=== PATIENT | female | born 1995 | race American Indian/Alaskan Native ===

== ENCOUNTER 2020-04-06 14:53 | Emergency (ER) | payer SELFPAY | END 2020-04-06 22:30 | disposition left against medical advice (07) | LOC: ED 14:53 | DX: O26.892 Other specified pregnancy related conditions, second trimester (principal); Z53.21 Procedure and treatment not carried out due to patient leaving prior to being seen by health care provider ==

== ENCOUNTER 2020-08-30 14:37 | Outpatient (CLI) | payer OTHER, MEDICAID ==
[2020-08-30] MEDS ORDERED: LACTATED RINGERS 1,000 ML ONE (15:56)
[2020-08-30 18:08] LABS: Hematocrit 34.2 % (30.3-42.9); Hemoglobin 11.1 gm/dl (10.1-14.3); Mean Corpuscular HGB Conc 33 % (30-34); Mean Corpuscular Volume 72 fl (79-97); Platelet Count 250 K/mm3 (140-440); Red Blood Count 4.74 M/mm3 (3.65-5.03); Red Cell Distribution Width 15.3 % (13.2-15.2)
[2020-08-30 18:13] LABS: Bacteria,Urine 1+ /HPF (Negative); Bilirubin,Urine NEG (Negative); Blood,Urine NEG (Negative); Color,Urine Amber (Yellow); Mucus,Urine 2+ /HPF
[2020-08-30 18:31] LABS: Alanine Aminotransferase 38 units/L (7-56); Uric Acid 4.2 mg/dL (3.5-7.6)
[2020-08-30 19:04] VITALS: BP 130/75
[2020-08-30] MEDS ORDERED: LACTATED RINGERS 500 ML IV ONE (19:15)
[2020-08-30] MEDS ORDERED: TERBUTALINE 1 MG/1 ML INJ SUB-Q SCH (20:00)
== END 2020-08-30 19:22 | disposition home or self-care (01) ==
LOC: TRG 14:37 → APU 14:57 → TRG 19:22
PROVIDERS: ATTEND Obstetrics & Gynecology
DX: O47.03 False labor before 37 completed weeks of gestation, third trimester (principal); O13.3 Gestational [pregnancy-induced] hypertension without significant proteinuria, third trimester; Z3A.34 34 weeks gestation of pregnancy
CPT/HCPCS: 36415; 81001; 82565; 83615; 84450; 84460; 84550; 85027; J7120

== ENCOUNTER 2020-09-06 15:56 | Inpatient (IN) | payer OTHER, MEDICAID ==
[2020-09-06 18:16] LABS: Hematocrit 32.9 % (30.3-42.9); Hemoglobin 10.7 gm/dl (10.1-14.3); Mean Corpuscular HGB Conc 33 % (30-34); Mean Corpuscular Volume 71 fl (79-97); Platelet Count 250 K/mm3 (140-440); Red Blood Count 4.63 M/mm3 (3.65-5.03); Red Cell Distribution Width 14.8 % (13.2-15.2)
[2020-09-06 18:39] LABS: Alanine Aminotransferase 22 units/L (7-56); Uric Acid 3.9 mg/dL (3.5-7.6)
[2020-09-06 20:52] LABS: Bacteria,Urine 2+ /HPF (Negative); Bilirubin,Urine SM (Negative); Blood,Urine NEG (Negative); Color,Urine Amber (Yellow); Mucus,Urine 3+ /HPF
[2020-09-06 21:03] LABS: Ictotest,Urine Positive (Negative)
[2020-09-07] MEDS ORDERED: ZOLPIDEM 5 MG TAB PO PRN (00:15)
[2020-09-07] MEDS ORDERED: ACETAMINOPHEN 500 MG TAB PO PRN (00:15)
[2020-09-07] MEDS ORDERED: LACTATED RINGERS 1,000 ML IV SCH (01:00)
[2020-09-07] MEDS ORDERED: ACETAMINOPHEN 500 MG TAB ONE (01:12)
[2020-09-07] MEDS ORDERED: ZOLPIDEM 5 MG TAB ONE (01:12)
[2020-09-07 06:02] VITALS: BP 136/81
--- NOTE | 2020-09-07 06:14 | Short Stay Summary ---
Short Stay Documentation Date of service: 09/07/20 Narrative H&P: Pt is a 25 year old G2, P1 who presents to triage after having elevated blood pressures and complaint of headache at [facility]. Patient is morbidly obese and has been having intermittent elevations of blood pressure for the past few weeks. Per patient she performed 24-hour urine last week and turned into her doctor's office. It is pending full results. Patient is stating that her her headache has resolved at this point. Her blood pressures continue to be labile with some that appear to be elevated and some that appear to be within normal range. - History Principal diagnosis: IUP at 35.2 weeks, Labile gestational hypertension Past Medical History: hypertension Social history: single - Allergies and Medications Current Medications: Allergies turkey Allergy (Uncoded 01/22/14 12:21) Hives Home Medications Medication Instructions Recorded Confirmed Last Taken Type Naproxen [Naprosyn] 250 mg PO BID #14 tablet 01/22/14 Unknown Rx Promethazine [Phenergan] 25 mg PO PRN PRN #12 tablet 01/22/14 Unknown Rx Acetaminophen/Codeine [Tylenol #3] 1 tab PO Q6H PRN #20 tab 04/17/15 Unknown Rx Fluticasone [Flonase] 2 spray NS QDAY #1 bottle 04/17/15 Unknown Rx Ibuprofen [Motrin] 600 mg PO Q8H PRN #50 tablet 04/17/15 Unknown Rx Loratadine (Nf) [Claritin] 10 mg PO DAILY #30 tablet 04/17/15 Unknown Rx Sulfamethoxazole/Trimethoprim 1 each PO BID #20 tablet 04/17/15 Unknown Rx [Bactrim DS TAB] Active Medications Acetaminophen (Acetaminophen 500 Mg Tab) 1,000 mg PO Q6H PRN PRN Reason: Pain, Mild (1-3) Lactated Ringer's (Lactated Ringers) 1,000 mls @ 125 mls/hr IV DIRECT HARITHA Zolpidem Tartrate (Zolpidem 5 Mg Tab) 5 mg PO QHS PRN PRN Reason: Sleep - Physical exam General appearance: no acute distress, obese (morbidly) Lungs: Clear to auscultation, Normal air movement Heart: Regular rate, Normal S1, Normal S2 Gastrointestinal: normal, obese Female Genitourinary: deferred Extremities: no ischemia, No edema - Hospital course Hospital course: Patient was admitted overnight for monitoring and serial blood pressures. Her blood pressure pattern appeared to be consistent as it had been in the previous observation. Will discharge patient home on modified bedrest and have her follow-up in the office on next week. Patient advised to take a low-salt diet and increase her fluid intake. - Disposition Condition at discharge: Good Disposition: DC-01 TO HOME OR SELFCARE - Discharge Diagnoses (1) Gestational hypertension affecting second Status: Acute (2) Obesity complicating , third trimester Status: Acute Short Stay Discharge Plan Activity: other (Modified bedrest) Weight Bearing Status: Weight Bear as Tolerated Diet: low salt Follow up with: BRAVO TANG MD [Primary Care Provider] - 7 Days
== END 2020-09-07 06:36 | disposition home or self-care (01) | DRG 833 ==
LOC: TRG 15:56 → LD 16:08 → TRG 16:11 → LD 16:13
PROVIDERS: ADMIT Obstetrics & Gynecology; ATTEND Obstetrics & Gynecology
DX: O13.3 Gestational [pregnancy-induced] hypertension without significant proteinuria, third trimester (principal); O99.213 Obesity complicating pregnancy, third trimester; Z3A.35 35 weeks gestation of pregnancy; Z79.899 Other long term (current) drug therapy
CPT/HCPCS: 36415; 59025; 81001; 82565; 83615; 84450; 84460; 84550; 85027; 86850; 86900; 86901; G0378

== ENCOUNTER 2020-09-18 20:51 | Inpatient (IN) | payer OTHER, MEDICAID ==
[2020-09-18] MEDS ORDERED: MINERAL OIL 30 ML ORAL LIQD PO PRN (22:36)
[2020-09-18] MEDS ORDERED: TERBUTALINE 1 MG/1 ML INJ SUB-Q PRN (22:36)
[2020-09-18] MEDS ORDERED: LIDOCAINE (2%) 20 MG/1 ML VIAL 20 ML MDV INFILTRATI ONE (22:36)
[2020-09-18] MEDS ORDERED: ePHEDrine SULFATE 50 MG/1 ML INJ IV PRN (22:36)
[2020-09-18] MEDS ORDERED: OXYTOCIN DRIP 30 UNITS/500 ML BAG IV SCH ×2 (23:00)
[2020-09-18] MEDS: LACTATED RINGERS 1,000 ML IV SCH (23:25)
[2020-09-18] MEDS ORDERED: DINOPROSTONE 10 MG VAG SUPP VG ONE (23:55)
[2020-09-19 00:21] LABS: Hemoglobin 10.7 gm/dl (10.1-14.3); Mean Corpuscular HGB Conc 33 % (30-34); Mean Corpuscular Volume 71 fl (79-97); Platelet Count 271 K/mm3 (140-440); Red Blood Count 4.65 M/mm3 (3.65-5.03); Red Cell Distribution Width 14.8 % (13.2-15.2)
--- NOTE | 2020-09-19 02:59 | History and Physical Report ---
History of Present Illness Date of admission: 09/18/20 20:51 Chief complaint: induction of labor History of present illness: 25yo presents for scheduled induction of labor. She denies contractions, leakage of fluid, or vaginal bleeding. +FM. Denies MESA, RUQ pain, or changes to vision. Reports compliance with antihypertensive medications. No complaints Past History - Obstetrical History : 2 Medications and Allergies Allergies Allergy/AdvReac Type Severity Reaction Status Date / Time turkey Allergy Hives Uncoded 01/22/14 12:21 Home Medications Medication Instructions Recorded Confirmed Last Taken Type One Daily Tablet 1 tab PO DAILY 09/18/20 09/18/20 09/17/20 09:00 History labetaloL [Labetalol 100mg TAB] 1 tab PO BID 09/18/20 09/18/20 09/18/20 12:00 History Active Meds: Active Medications Ephedrine Sulfate (Ephedrine Sulfate 50 Mg/1 Ml Inj) 10 mg IV Q2M PRN PRN Reason: Hypotension Oxytocin/Sodium Chloride (Pitocin/Ns 30 Unit/500ml) 30 units in 500 mls @ 2 mls/hr IV TITR HARITHA; Protocol Lactated Ringer's (Lactated Ringers) 1,000 mls @ 125 mls/hr IV DIRECT HARITHA Last Admin: 09/18/20 23:25 Dose: 125 mls/hr Documented by: Oxytocin/Sodium Chloride (Pitocin/Ns 30 Unit/500ml) 30 units in 500 mls @ 40 mls/hr IV TITR HARITHA; Protocol Labetalol HCl (Labetalol 100 Mg Tab) 100 mg PO BID HARITHA Last Admin: 09/18/20 23:26 Dose: 100 mg Documented by: Mineral Oil (Mineral Oil 30 Ml Oral Liqd) 30 ml PO QHS PRN PRN Reason: Constipation Terbutaline Sulfate (Terbutaline 1 Mg/1 Ml Inj) 0.25 mg SUB-Q ONCE PRN PRN Reason: Hyperstimulation/Hypertonicity Review of Systems Cardiovascular: no chest pain, no syncope, no shortness of breath Respiratory: no cough, no shortness of breath Gastrointestinal: no abdominal pain, no nausea, no vomiting, no diarrhea, no constipation - Vital Signs Vital signs: Vital Signs Pulse Pulse Ox 103 H 99 09/18/20 21:40 09/18/20 21:40 Temp Pulse Resp BP Pulse Ox 79 18 158/95 100 09/19/20 02:50 09/18/20 21:44 09/19/20 02:47 09/19/20 02:50 - Physical Exam Breasts: Positive: deferred Cardiovascular: Regular rate Lungs: Positive: Clear to auscultation Abdomen: Positive: normal appearance, soft, other (obese). Negative: distention, tenderness Genitourinary (Female): Positive: normal external genitalia Uterus: Positive: other (gravid) - Obstetrical FHR: category 1 FHR comments: 140s 15x15 Uterine Contraction Monitor Mode: External Cervical Dilatation: 0 Uterine Contraction Pattern: Irregular Results Result Diagrams: 09/18/20 23:17 Abnormal lab results 09/18/20 Range/Units 23:17 MCV 71 L (79-97) fl MCH 23 L (28-32) pg All other labs normal. Assessment and Plan anticipate vaginal delivery - Patient Problems (1) Encounter for induction of labor Current Visit: Yes Status: Acute Plan to address problem: secondary to gHTN and morbid obesity -Cervidil placed [facility]: Per [facility] -labs reviewed -abnormal OGTT, normal 3OGTT-increased risk for shoulder dystocia -GBS positive - cephalic on usg 09/13 (2) Gestational hypertension affecting second Current Visit: No Status: Acute Plan to address problem: -labetalol 100 BID -continue to monitor BPs -no signs of severe features, add PIH labs/mag if indicated (3) Obesity complicating , third trimester Current Visit: No Status: Acute (4) GBS (group B Streptococcus carrier), +RV culture, currently Current Visit: Yes Status: Acute Plan to address problem: Ampicillin in active labor
[2020-09-19] MEDS: BUTORPHANOL 2 MG/1 ML INJ IV PRN (08:42)
--- NOTE | 2020-09-19 08:55 | Progress Note ---
Assessment and Plan - Patient Problems (1) Morbid obesity with BMI of 70 and over, adult Current Visit: Yes Status: Acute Plan to address problem: continue with induction (2) Chronic hypertension affecting Current Visit: Yes Status: Acute Subjective - Subjective Date of service: 09/19/20 Interval history: 25y/o @ 37+ weeks being induced for chronic hypertension and morbid obesity. Cervidil was placed last night and scheduled to be removed today around 11am. Patient having irregular contractions and pain. Denies leakage of fluid Patient reports: no new complaints Objective - Vital Signs Vital Signs: Vital Signs - 12hr 09/18/20 09/18/20 09/18/20 21:40 21:44 21:45 Temperature Pulse Rate 103 H 103 H Respiratory 18 Rate Blood Pressure Blood Pressure [Right] O2 Sat by Pulse 99 99 Oximetry 09/18/20 09/18/20 09/18/20 21:46 21:50 21:55 Temperature Pulse Rate 94 H 99 H 86 Respiratory Rate Blood Pressure 138/89 Blood Pressure [Right] O2 Sat by Pulse 99 99 Oximetry 09/18/20 09/18/20 09/18/20 22:00 22:05 22:10 Temperature Pulse Rate 102 H 98 H 95 H Respiratory Rate Blood Pressure Blood Pressure [Right] O2 Sat by Pulse 100 100 99 Oximetry 09/18/20 09/18/20 09/18/20 22:15 22:20 22:25 Temperature Pulse Rate 98 H 90 89 Respiratory Rate Blood Pressure Blood Pressure [Right] O2 Sat by Pulse 99 100 100 Oximetry 09/18/20 09/18/20 09/18/20 22:30 22:35 22:40 Temperature Pulse Rate 101 H 117 H 89 Respiratory Rate Blood Pressure Blood Pressure [Right] O2 Sat by Pulse 100 98 99 Oximetry 09/18/20 09/18/20 09/18/20 22:45 22:50 22:55 Temperature Pulse Rate 93 H 108 H 87 Respiratory Rate Blood Pressure Blood Pressure [Right] O2 Sat by Pulse 99 100 100 Oximetry 09/18/20 09/18/20 09/18/20 23:00 23:05 23:10 Temperature Pulse Rate 90 109 H 98 H Respiratory Rate Blood Pressure Blood Pressure [Right] O2 Sat by Pulse 100 100 99 Oximetry 09/18/20 09/18/20 09/18/20 23:15 23:20 23:25 Temperature Pulse Rate 103 H 96 H 92 H Respiratory Rate Blood Pressure Blood Pressure [Right] O2 Sat by Pulse 99 100 99 Oximetry 09/18/20 09/18/20 09/18/20 23:26 23:27 23:30 Temperature Pulse Rate 95 H 98 H 95 H Respiratory Rate Blood Pressure 137/99 137/99 Blood Pressure [Right] O2 Sat by Pulse 100 Oximetry 09/18/20 09/18/20 09/18/20 23:35 23:40 23:45 Temperature Pulse Rate 97 H 87 90 Respiratory Rate Blood Pressure Blood Pressure [Right] O2 Sat by Pulse 98 100 98 Oximetry 09/18/20 09/18/20 09/18/20 23:47 23:50 23:55 Temperature Pulse Rate 94 H 89 91 H Respiratory Rate Blood Pressure 139/83 Blood Pressure [Right] O2 Sat by Pulse 99 98 Oximetry 09/19/20 09/19/20 09/19/20 00:00 00:05 00:10 Temperature Pulse Rate 91 H 89 90 Respiratory Rate Blood Pressure Blood Pressure [Right] O2 Sat by Pulse 99 98 99 Oximetry 09/19/20 09/19/20 09/19/20 00:15 00:20 00:25 Temperature Pulse Rate 95 H 90 90 Respiratory Rate Blood Pressure Blood Pressure [Right] O2 Sat by Pulse 100 99 99 Oximetry 09/19/20 09/19/20 09/19/20 00:30 00:35 00:40 Temperature Pulse Rate 92 H 92 H 96 H Respiratory Rate Blood Pressure Blood Pressure [Right] O2 Sat by Pulse 98 99 99 Oximetry 09/19/20 09/19/20 09/19/20 00:45 00:47 00:50 Temperature Pulse Rate 96 H 107 H 94 H Respiratory Rate Blood Pressure 123/79 Blood Pressure [Right] O2 Sat by Pulse 99 100 Oximetry 09/19/20 09/19/20 09/19/20 00:55 01:00 01:05 Temperature Pulse Rate 102 H 98 H 104 H Respiratory Rate Blood Pressure Blood Pressure [Right] O2 Sat by Pulse 98 99 99 Oximetry 09/19/20 09/19/20 09/19/20 01:10 01:15 01:20 Temperature Pulse Rate 88 81 84 Respiratory Rate Blood Pressure Blood Pressure [Right] O2 Sat by Pulse 99 99 98 Oximetry 09/19/20 09/19/20 09/19/20 01:25 01:30 01:35 Temperature Pulse Rate 94 H 90 88 Respiratory Rate Blood Pressure Blood Pressure [Right] O2 Sat by Pulse 98 98 98 Oximetry 09/19/20 09/19/20 09/19/20 01:40 01:45 01:47 Temperature Pulse Rate 85 86 81 Respiratory Rate Blood Pressure 116/59 Blood Pressure [Right] O2 Sat by Pulse 98 97 Oximetry 09/19/20 09/19/20 09/19/20 01:50 01:55 01:58 Temperature Pulse Rate 86 85 102 H Respiratory Rate Blood Pressure Blood Pressure [Right] O2 Sat by Pulse 98 98 93 Oximetry 09/19/20 09/19/20 09/19/20 02:00 02:05 02:10 Temperature Pulse Rate 83 94 H 89 Respiratory Rate Blood Pressure Blood Pressure [Right] O2 Sat by Pulse 99 98 99 Oximetry 09/19/20 09/19/20 09/19/20 02:15 02:20 02:25 Temperature Pulse Rate 94 H 88 91 H Respiratory Rate Blood Pressure Blood Pressure [Right] O2 Sat by Pulse 99 98 98 Oximetry 09/19/20 09/19/20 09/19/20 02:30 02:35 02:40 Temperature Pulse Rate 89 90 93 H Respiratory Rate Blood Pressure Blood Pressure [Right] O2 Sat by Pulse 98 98 98 Oximetry 09/19/20 09/19/20 09/19/20 02:45 02:47 02:50 Temperature Pulse Rate 85 79 79 Respiratory Rate Blood Pressure 158/95 Blood Pressure [Right] O2 Sat by Pulse 99 100 Oximetry 09/19/20 09/19/20 09/19/20 02:55 03:00 03:02 Temperature Pulse Rate 83 88 Respiratory Rate Blood Pressure Blood Pressure [Right] O2 Sat by Pulse 99 99 94 Oximetry 09/19/20 09/19/20 09/19/20 03:05 03:13 03:14 Temperature 98.1 F Pulse Rate 96 H 93 H Respiratory Rate Blood Pressure Blood Pressure [Right] O2 Sat by Pulse 100 100 Oximetry 09/19/20 09/19/20 09/19/20 03:19 03:24 03:29 Temperature Pulse Rate 87 88 99 H Respiratory Rate Blood Pressure Blood Pressure [Right] O2 Sat by Pulse 100 100 100 Oximetry 09/19/20 09/19/20 09/19/20 03:34 03:39 03:44 Temperature Pulse Rate 95 H 92 H 88 Respiratory Rate Blood Pressure Blood Pressure [Right] O2 Sat by Pulse 100 100 100 Oximetry 09/19/20 09/19/20 09/19/20 03:48 03:49 03:54 Temperature Pulse Rate 83 87 89 Respiratory Rate Blood Pressure 131/78 Blood Pressure [Right] O2 Sat by Pulse 99 99 Oximetry 09/19/20 09/19/20 09/19/20 03:59 04:04 04:09 Temperature Pulse Rate 87 86 90 Respiratory Rate Blood Pressure Blood Pressure [Right] O2 Sat by Pulse 99 99 99 Oximetry 09/19/20 09/19/20 09/19/20 04:14 04:19 04:24 Temperature Pulse Rate 93 H 89 90 Respiratory Rate Blood Pressure Blood Pressure [Right] O2 Sat by Pulse 99 98 99 Oximetry 09/19/20 09/19/20 09/19/20 04:29 04:34 04:39 Temperature Pulse Rate 87 89 96 H Respiratory Rate Blood Pressure Blood Pressure [Right] O2 Sat by Pulse 99 97 99 Oximetry 09/19/20 09/19/20 09/19/20 04:44 04:47 04:49 Temperature Pulse Rate 94 H 90 93 H Respiratory Rate Blood Pressure 132/82 Blood Pressure [Right] O2 Sat by Pulse 99 99 Oximetry 09/19/20 09/19/20 09/19/20 04:54 04:59 05:04 Temperature Pulse Rate 85 89 86 Respiratory Rate Blood Pressure Blood Pressure [Right] O2 Sat by Pulse 99 99 99 Oximetry 09/19/20 09/19/20 09/19/20 05:09 05:14 05:19 Temperature Pulse Rate 88 86 95 H Respiratory Rate Blood Pressure Blood Pressure [Right] O2 Sat by Pulse 99 99 99 Oximetry 09/19/20 09/19/20 09/19/20 05:24 05:29 05:34 Temperature Pulse Rate 99 H 86 84 Respiratory Rate Blood Pressure Blood Pressure [Right] O2 Sat by Pulse 100 98 97 Oximetry 09/19/20 09/19/20 09/19/20 05:39 05:44 05:47 Temperature Pulse Rate 88 87 78 Respiratory Rate Blood Pressure 132/66 Blood Pressure [Right] O2 Sat by Pulse 96 96 Oximetry 09/19/20 09/19/20 09/19/20 05:49 05:54 05:59 Temperature Pulse Rate 83 86 85 Respiratory Rate Blood Pressure Blood Pressure [Right] O2 Sat by Pulse 97 97 96 Oximetry 09/19/20 09/19/20 09/19/20 06:04 06:09 06:14 Temperature Pulse Rate 84 89 86 Respiratory Rate Blood Pressure Blood Pressure [Right] O2 Sat by Pulse 97 96 97 Oximetry 09/19/20 09/19/20 09/19/20 06:19 06:24 06:29 Temperature Pulse Rate 90 85 95 H Respiratory Rate Blood Pressure Blood Pressure [Right] O2 Sat by Pulse 100 100 100 Oximetry 09/19/20 09/19/20 09/19/20 06:51 06:56 07:01 Temperature Pulse Rate 99 H 84 87 Respiratory Rate Blood Pressure Blood Pressure [Right] O2 Sat by Pulse 100 100 100 Oximetry 09/19/20 09/19/20 09/19/20 07:06 07:11 07:16 Temperature Pulse Rate 84 94 H 91 H Respiratory Rate Blood Pressure Blood Pressure [Right] O2 Sat by Pulse 100 100 100 Oximetry 09/19/20 09/19/20 09/19/20 07:21 07:26 07:31 Temperature Pulse Rate 92 H 82 83 Respiratory Rate Blood Pressure Blood Pressure [Right] O2 Sat by Pulse 100 100 100 Oximetry 09/19/20 09/19/20 09/19/20 07:36 07:41 07:46 Temperature Pulse Rate 84 84 87 Respiratory Rate Blood Pressure Blood Pressure [Right] O2 Sat by Pulse 100 100 100 Oximetry 09/19/20 09/19/20 09/19/20 07:51 07:53 07:54 Temperature 98.1 F Pulse Rate 86 86 86 Respiratory 18 Rate Blood Pressure 139/95 Blood Pressure 139/95 [Right] O2 Sat by Pulse 99 100 Oximetry 09/19/20 09/19/20 09/19/20 07:56 08:01 08:06 Temperature Pulse Rate 92 H 88 94 H Respiratory Rate Blood Pressure Blood Pressure [Right] O2 Sat by Pulse 100 100 100 Oximetry 09/19/20 09/19/20 09/19/20 08:11 08:16 08:21 Temperature Pulse Rate 90 87 87 Respiratory Rate Blood Pressure Blood Pressure [Right] O2 Sat by Pulse 99 99 100 Oximetry 09/19/20 09/19/20 09/19/20 08:26 08:31 08:36 Temperature Pulse Rate 94 H 102 H 91 H Respiratory Rate Blood Pressure Blood Pressure [Right] O2 Sat by Pulse 100 99 100 Oximetry 09/19/20 09/19/20 09/19/20 08:41 08:46 08:47 Temperature Pulse Rate 92 H 88 88 Respiratory Rate Blood Pressure Blood Pressure [Right] O2 Sat by Pulse 99 97 92 Oximetry 09/19/20 08:48 Temperature Pulse Rate 86 Respiratory Rate Blood Pressure 157/93 Blood Pressure [Right] O2 Sat by Pulse Oximetry - Labs Labs: Abnormal Labs 09/18/20 23:17 MCV 71 L MCH 23 L Laboratory Results - last 24 hr 09/18/20 09/18/20 23:17 23:17 WBC 7.9 RBC 4.65 Hgb 10.7 Hct 33.0 MCV 71 L MCH 23 L MCHC 33 RDW 14.8 Plt Count 271 Blood Type O POSITIVE Antibody Screen Negative
[2020-09-19] MEDS: LACTATED RINGERS 1,000 ML IV SCH (17:03)
[2020-09-20] MEDS: LACTATED RINGERS 1,000 ML IV SCH ×2 (01:11→17:13)
[2020-09-20] MEDS ORDERED: fentaNYL 100 MCG/2 ML INJ IV PRN (03:29)
[2020-09-20] MEDS: BUTORPHANOL 2 MG/1 ML INJ IV PRN ×2 (08:51→11:34)
--- NOTE | 2020-09-20 11:21 | Event Note ---
Date: 09/20/20 Patient undergoing induction for chronic hypertension and morbid obesity. She has been transitioned to pitocin after receiving cervidil. Cook catheter placed this am. Cervix 1.5cm/60%/-2. Remains intact. Continue to increase pitocin.
[2020-09-20] MEDS: hydrALAZINE 20 MG/1 ML INJ IV PRN ×5 (11:23→22:57)
[2020-09-20] MEDS ORDERED: NALOXONE 2 MG/2 ML INJ IV PRN (17:05)
[2020-09-20] MEDS ORDERED: ePHEDrine SULFATE 50 MG/1 ML INJ IV PRN (17:05)
--- NOTE | 2020-09-20 17:05 | Anesthesia Consultation ---
Anesthesia Consult and Med Hx Date of service: 09/20/20 - Airway Anesthetic Teeth Evaluation: Good ROM Head & Neck: Adequate Mental/Hyoid Distance: Adequate Mallampati Class: Class III Intubation Access Assessment: Possibly Difficult - Pulmonary Exam CTA: Yes - Cardiac Exam Cardiac Exam: RRR - Pre-Operative Health Status ASA Pre-Surgery Classification: ASA3 Proposed Anesthetic Plan: Epidural - Pulmonary Hx Asthma: No COPD: No Hx Pneumonia: No - Cardiovascular System Hx Hypertension: Yes Hx Pacemaker: No Hx Internal Defibrillator: No - Central Nervous System Hx Seizures: No Hx Psychiatric Problems: No - Endocrine Hx Renal Disease: No Hx End Stage Renal Disease: No Hx Hypothyroidism: No Hx Hyperthyroidism: No - Hematic Hx Anemia: Yes Hx Sickle Cell Disease: No - Other Systems Hx Alcohol Use: No Hx Obesity: Yes
--- NOTE | 2020-09-20 17:27 | Progress Note ---
Labor Epidural - Labor Epidural Start Time: 17:13 Stop Time: 17:19 Performed by:: BRITTNEY BRANNON Procedure: Patient is requesting epidural for labor pain. H&P, and labs reviewed. Procedure explained, questions answered, consent obtained. Patient in sitting position with blood pressure cuff and pulse ox on and working. Timeout performed immediately before start of procedure. Sterile chlorahexadine 0.5% prep/drape. 5 mL 1% lidocaine skin wheal at L[3]-L[4]. 18-gauge Tuohy epidural needle advanced to [id number] with saline at 10 cm. Epidural dexmedetomidine [30] mcg administered. Epidural catheter advanced to 15 cm, negative aspiration for blood and csf, negative test dose 3 ml 1.5% lidocaine with epinephrine. Sterile steri-strips and tegaderm applied, followed by tape reinforcement. Patient tolerated procedure well.
[2020-09-20] MEDS ORDERED: fentaNYL-BUPIV 2 MCG/ML-0.125% 200 MCG/100 ML BAG EPIDURAL SCH (18:00)
[2020-09-20] MEDS ORDERED: AMPICILLIN/NS 2 GM/100 ML 2 GM/100 ML BAG IV ONE (18:09)
[2020-09-20] MEDS ORDERED: CARBOPROST TROMETHAMINE 250 MCG/1 ML INJ IM ONE (20:08)
[2020-09-20] MEDS ORDERED: miSOPROStol 200 MCG TAB ONE (20:09)
[2020-09-20] MEDS ORDERED: DIPHENOXYLATE/ATROPINE TAB PO PRN (20:11)
[2020-09-20] MEDS ORDERED: CARBOPROST TROMETHAMINE 250 MCG/1 ML INJ IM PRN (20:14)
[2020-09-20] MEDS ORDERED: miSOPROStol 200 MCG TAB PR PRN (20:14)
[2020-09-20] MEDS ORDERED: OXYTOCIN 10 UNIT/1 ML INJ ONE (20:37)
[2020-09-20] MEDS ORDERED: LIDOCAINE (2%) 20 MG/1 ML VIAL 20 ML MDV INFILTRATI ONE ×2 (20:39→20:46)
[2020-09-20] MEDS ORDERED: OXYTOCIN 10 UNIT/1 ML INJ IM ONE (20:46)
--- NOTE | 2020-09-20 20:56 | Procedure Note ---
OB Delivery Note - Delivery Date of Delivery: 09/20/20 Surgeon: SHAMEKA NAYAK Estimated blood loss: 300cc - Vaginal Delivery presentation: vertex Delivery position: OA Intrapartum events: mult.variable deceleratio Delivery induction: AROM Delivery augmentation: rupture of membranes Delivery monitor: external FHT, external uterine Route of delivery: Delivery placenta: spontaneous Delivery cord: 3 umbilical vessels Episiotomy: none Delivery laceration: 2nd degree Delivery repair: vicryl Anesthesia: epidural Delivery comments: Pt delivered by nursing staff after sudden cervical change., Weight 2721 grams, 6 pounds. Apgars 8/9. Loose nuchal cord easily reduced on the perineum. Placenta delivered spontaneously and intact with 3vc. 2nd degree laceration repaired with 2.0 vicryl. Pt tolerated procedure well. Excellent hemostasis. - Infant A at 1 minute: 8 Infant Gender: Male (6 pounds)
[2020-09-20] MEDS ORDERED: AMPICILLIN/NS 1 GM/50 ML 1 GM/50 ML BAG IV SCH (22:00)
[2020-09-20] MEDS ORDERED: MAGNESIUM SULFATE 4 GM/100 ML BAG IV ONE ×2 (22:37→22:38)
[2020-09-20] MEDS ORDERED: MAGNESIUM SULFATE 40GM/1000ML 40 GM/1,000 ML BAG IV ONE (22:38)
[2020-09-20] MEDS ORDERED: MAGNESIUM SULFATE 40GM/1000ML 40 GM/1,000 ML BAG IV SCH (23:00)
[2020-09-21] MEDS ORDERED: IBUPROFEN 600 MG TAB PO PRN (02:24)
[2020-09-21] MEDS: hydrALAZINE 20 MG/1 ML INJ IV PRN (02:36)
[2020-09-21] MEDS: LACTATED RINGERS 1,000 ML IV SCH (02:38)
[2020-09-21] MEDS ORDERED: MAGNESIUM HYDROXIDE (MOM) ORAL LIQD UDC PO PRN (08:48)
[2020-09-21] MEDS ORDERED: LANOLIN/ZINC/DIMETHICONE (LANSINOH) 7 GM TP PRN (08:48)
[2020-09-21] MEDS ORDERED: WITCH HAZEL/ GLYCERIN PAD TP PRN (08:48)
[2020-09-21] MEDS ORDERED: ONDANSETRON 4 MG/2 ML INJ IV PRN (08:48)
[2020-09-21] MEDS ORDERED: diphenhydrAMINE 25 MG CAP PO PRN (08:48)
[2020-09-21] MEDS ORDERED: PROMETHAZINE 25 MG RECT SUPP PR PRN (08:48)
[2020-09-21] MEDS ORDERED: PROMETHAZINE 25 MG TAB PO PRN (08:48)
[2020-09-21] MEDS: IBUPROFEN 600 MG TAB PO SCH ×3 (08:50→22:14)
[2020-09-21] MEDS: HYDROcodone/ACETAMINOPHEN 5-325 MG TAB PO PRN ×2 (09:14→17:49)
[2020-09-21] MEDS: SENNOSIDES/DOCUSATE SODIUM 8.6/50 MG TAB PO SCH ×2 (09:14→20:40)
[2020-09-21] MEDS: DOCUSATE SODIUM 100 MG CAP PO SCH ×3 (09:30→22:14)
[2020-09-21] MEDS: PRENATAL VIT27-FE FUMARATE-FOLIC ACID VIT TAB PO SCH (09:30)
[2020-09-21 11:41] LABS: Hematocrit 31.7 % (30.3-42.9); Hemoglobin 10.1 gm/dl (10.1-14.3)
--- NOTE | 2020-09-21 12:44 | Progress Note ---
Assessment and Plan PPD 1 s/p now on mag, doing well. Blood pressures within range post delivery. Continue on mag until 24 hours post delivery then transfer to mother/baby. Subjective - Subjective Date of service: 09/21/20 Interval history: Pt began to have elevated blood pressures after delivery and decision was made to begin magnesium and to continue on labetalol bid. Patient reports: appetite normal, voiding normally, pain well controlled, ambulating normally [place]: doing well Objective - Vital Signs Latest vital signs: Vital Signs Temp Pulse Resp BP Pulse Ox 09/21/20 12:32 105 H 99 09/21/20 12:28 94 H 145/93 09/21/20 12:27 99 H 99 09/21/20 12:22 107 H 98 09/21/20 12:17 103 H 99 09/21/20 12:12 105 H 99 09/21/20 12:07 108 H 99 09/21/20 12:02 109 H 100 09/21/20 11:57 99 H 99 09/21/20 11:52 98 H 99 09/21/20 11:47 102 H 100 09/21/20 11:42 112 H 98 09/21/20 11:37 97 H 99 09/21/20 11:32 92 H 98 09/21/20 11:29 96 H 139/69 09/21/20 11:27 95 H 99 09/21/20 11:22 100 H 99 09/21/20 11:17 89 98 09/21/20 11:12 88 98 09/21/20 11:07 90 98 09/21/20 11:02 87 98 09/21/20 10:57 93 H 98 09/21/20 10:52 90 99 09/21/20 10:47 92 H 99 09/21/20 10:42 95 H 99 09/21/20 10:37 93 H 99 09/21/20 10:32 94 H 99 09/21/20 10:29 93 H 115/81 09/21/20 10:27 96 H 99 09/21/20 10:22 90 99 09/21/20 10:17 90 99 09/21/20 10:12 92 H 99 09/21/20 10:07 96 H 99 09/21/20 10:02 89 97 09/21/20 09:57 92 H 96 09/21/20 09:52 91 H 97 09/21/20 09:47 94 H 99 09/21/20 09:42 92 H 98 09/21/20 09:37 95 H 98 09/21/20 09:32 96 H 99 09/21/20 09:29 98 H 156/92 09/21/20 09:27 94 H 100 09/21/20 09:22 98 H 100 09/21/20 09:17 112 H 100 09/21/20 09:14 16 09/21/20 09:13 101 H 154/91 09/21/20 09:12 102 H 100 09/21/20 09:07 104 H 100 09/21/20 09:02 100 H 100 09/21/20 08:57 102 H 99 09/21/20 08:52 118 H 100 09/21/20 08:47 99 H 100 09/21/20 08:44 106 H 154/91 09/21/20 08:42 113 H 100 09/21/20 08:37 98 H 100 09/21/20 08:32 98 H 100 09/21/20 08:28 100 H 177/101 09/21/20 08:27 104 H 100 09/21/20 08:22 104 H 100 09/21/20 08:17 100 H 100 09/21/20 08:12 109 H 100 09/21/20 08:07 101 H 100 09/21/20 08:03 88 94 09/21/20 08:02 109 H 100 09/21/20 07:57 98 H 100 09/21/20 07:52 102 H 100 09/21/20 07:47 102 H 98 09/21/20 07:42 103 H 99 09/21/20 07:37 103 H 99 09/21/20 07:32 98 H 99 09/21/20 07:28 97 H 138/83 09/21/20 07:27 107 H 99 09/21/20 07:22 101 H 99 09/21/20 07:17 98 H 99 09/21/20 07:12 109 H 100 09/21/20 07:07 104 H 99 09/21/20 07:02 108 H 98 09/21/20 06:57 106 H 99 09/21/20 06:52 104 H 99 09/21/20 06:47 104 H 99 09/21/20 06:42 103 H 99 09/21/20 06:37 100 H 99 09/21/20 06:32 113 H 99 09/21/20 06:27 107 H 100 09/21/20 06:22 103 H 100 09/21/20 06:17 105 H 98 09/21/20 06:12 104 H 98 09/21/20 06:07 112 H 98 09/21/20 06:02 106 H 98 09/21/20 05:57 110 H 99 09/21/20 05:52 110 H 98 09/21/20 05:47 109 H 99 09/21/20 05:42 111 H 99 09/21/20 05:37 112 H 98 09/21/20 05:32 111 H 99 09/21/20 05:28 113 H 133/81 09/21/20 05:27 113 H 99 09/21/20 05:22 113 H 99 09/21/20 05:17 113 H 99 09/21/20 05:12 112 H 99 09/21/20 05:07 115 H 99 09/21/20 05:02 114 H 99 09/21/20 04:57 114 H 99 09/21/20 04:52 116 H 99 09/21/20 04:48 195 H 83 L 09/21/20 04:47 127 H 99 09/21/20 04:42 120 H 98 09/21/20 04:37 122 H 98 09/21/20 04:32 121 H 97 09/21/20 04:28 123 H 134/77 09/21/20 04:27 120 H 98 09/21/20 04:22 122 H 98 09/21/20 04:17 125 H 98 09/21/20 04:12 126 H 98 09/21/20 04:07 126 H 98 09/21/20 04:02 123 H 98 09/21/20 03:57 125 H 98 09/21/20 03:52 129 H 98 09/21/20 03:47 128 H 98 09/21/20 03:42 129 H 98 09/21/20 03:37 129 H 98 09/21/20 03:32 129 H 98 09/21/20 03:28 129 H 131/70 09/21/20 03:27 127 H 98 09/21/20 03:22 127 H 99 09/21/20 03:17 128 H 99 09/21/20 03:12 129 H 99 09/21/20 03:07 126 H 99 09/21/20 03:02 125 H 98 09/21/20 02:57 125 H 99 09/21/20 02:56 98 F 20 09/21/20 02:52 124 H 100 09/21/20 02:47 121 H 99 09/21/20 02:43 123 H 154/80 09/21/20 02:42 132 H 99 09/21/20 02:37 119 H 100 09/21/20 02:36 118 H 173/103 09/21/20 02:28 118 H 173/103 09/21/20 02:27 122 H 171/98 09/21/20 01:28 123 H 177/108 09/21/20 00:38 129 H 99 09/21/20 00:33 126 H 98 09/21/20 00:28 129 H 145/94 98 09/21/20 00:23 132 H 99 09/21/20 00:18 136 H 99 09/21/20 00:13 130 H 98 09/21/20 00:08 128 H 99 09/21/20 00:03 130 H 99 09/20/20 23:58 128 H 169/97 99 09/20/20 23:53 133 H 99 09/20/20 23:48 130 H 99 09/20/20 23:43 135 H 99 09/20/20 23:38 129 H 99 09/20/20 23:33 131 H 99 09/20/20 23:28 134 H 99 09/20/20 23:25 133 H 159/87 09/20/20 23:23 129 H 99 09/20/20 23:20 127 H 154/88 09/20/20 23:18 138 H 100 09/20/20 23:16 126 H 144/82 09/20/20 23:12 127 H 99 09/20/20 23:07 135 H 100 09/20/20 23:02 122 H 99 09/20/20 22:57 116 H 195/110 99 09/20/20 22:56 114 H 195/110 09/20/20 22:52 115 H 99 09/20/20 22:47 112 H 99 09/20/20 22:42 116 H 100 09/20/20 22:41 114 H 176/89 09/20/20 22:37 107 H 99 09/20/20 22:32 108 H 100 09/20/20 22:30 18 09/20/20 22:27 108 H 100 09/20/20 22:26 110 H 171/81 09/20/20 22:22 111 H 99 09/20/20 22:17 105 H 100 09/20/20 22:16 102 H 195/91 09/20/20 22:15 104 H 244/115 09/20/20 22:12 107 H 99 09/20/20 22:07 100 H 99 09/20/20 22:02 100 H 99 09/20/20 22:00 98 F 22 09/20/20 21:57 109 H 100 09/20/20 21:56 103 H 155/81 09/20/20 21:52 107 H 100 09/20/20 21:47 112 H 99 09/20/20 21:42 104 H 100 09/20/20 21:41 101 H 154/79 09/20/20 21:37 101 H 100 09/20/20 21:32 100 H 99 09/20/20 21:27 106 H 99 09/20/20 21:26 106 H 156/78 09/20/20 21:22 106 H 99 09/20/20 21:19 112 H 159/86 09/20/20 21:17 111 H 99 09/20/20 21:12 109 H 100 09/20/20 21:11 114 H 154/127 09/20/20 21:07 111 H 100 09/20/20 21:02 116 H 100 09/20/20 20:57 111 H 100 09/20/20 20:56 114 H 148/78 09/20/20 20:52 130 H 100 09/20/20 20:47 108 H 100 09/20/20 20:42 105 H 100 09/20/20 20:41 106 H 135/71 09/20/20 20:37 108 H 100 09/20/20 20:32 105 H 100 09/20/20 20:27 118 H 99 09/20/20 20:24 105 H 142/87 09/20/20 20:22 103 H 99 09/20/20 20:17 60 86 09/20/20 20:12 63 82 L 09/20/20 20:07 101 H 100 09/20/20 20:02 103 H 99 09/20/20 19:57 91 H 100 09/20/20 19:54 107 H 143/88 09/20/20 19:52 102 H 99 09/20/20 19:47 89 100 09/20/20 19:42 98 H 100 09/20/20 19:37 99 H 99 09/20/20 19:32 94 H 100 09/20/20 19:27 87 99 09/20/20 19:22 88 138/79 99 09/20/20 19:19 85 138/80 09/20/20 19:17 89 99 09/20/20 19:16 87 136/86 09/20/20 19:13 94 H 136/84 09/20/20 19:12 88 100 09/20/20 19:10 85 133/79 09/20/20 19:08 98.2 F 17 09/20/20 19:07 85 130/74 100 09/20/20 19:04 93 H 128/69 09/20/20 19:02 104 H 97 09/20/20 19:01 86 141/77 09/20/20 18:58 81 139/76 09/20/20 18:57 90 100 09/20/20 18:55 86 141/78 09/20/20 18:52 94 H 141/79 100 09/20/20 18:49 93 H 140/78 09/20/20 18:47 109 H 100 09/20/20 18:46 100 H 133/77 09/20/20 18:43 91 H 137/77 09/20/20 18:42 88 99 09/20/20 18:40 89 130/73 09/20/20 18:37 88 128/72 99 09/20/20 18:34 94 H 129/73 09/20/20 18:32 91 H 99 09/20/20 18:31 86 133/73 09/20/20 18:28 92 H 136/72 09/20/20 18:27 94 H 100 09/20/20 18:25 89 136/74 09/20/20 18:22 92 H 130/72 99 09/20/20 18:19 82 131/74 09/20/20 18:17 89 99 09/20/20 18:16 86 130/70 09/20/20 18:13 88 126/63 09/20/20 18:12 95 H 97 09/20/20 18:10 93 H 121/58 09/20/20 18:07 92 H 131/69 99 09/20/20 18:04 93 H 135/78 09/20/20 18:02 89 100 09/20/20 18:01 90 140/79 09/20/20 17:58 93 H 138/76 09/20/20 17:57 90 99 09/20/20 17:55 91 H 137/78 09/20/20 17:52 94 H 145/76 100 09/20/20 17:49 93 H 154/87 09/20/20 17:47 98 H 99 09/20/20 17:46 98 H 151/87 09/20/20 17:43 90 156/86 09/20/20 17:42 93 H 99 09/20/20 17:40 86 152/83 09/20/20 17:37 90 158/86 99 09/20/20 17:34 92 H 156/86 09/20/20 17:32 92 H 100 09/20/20 17:31 96 H 168/85 09/20/20 17:28 98 H 163/85 09/20/20 17:27 97 H 100 09/20/20 17:25 90 172/94 09/20/20 17:22 101 H 169/91 100 09/20/20 17:20 103 H 181/99 09/20/20 17:17 98 H 100 09/20/20 17:12 108 H 100 09/20/20 17:07 107 H 99 09/20/20 17:02 103 H 100 09/20/20 16:57 105 H 188/95 100 09/20/20 16:52 97 H 99 09/20/20 16:47 94 H 100 09/20/20 16:42 103 H 100 09/20/20 16:37 106 H 99 09/20/20 16:32 98 H 100 09/20/20 16:27 102 H 179/100 100 09/20/20 16:22 104 H 100 09/20/20 16:17 94 H 100 09/20/20 16:12 100 H 100 09/20/20 16:08 90 142/87 09/20/20 16:07 93 H 100 09/20/20 16:06 83 L 09/20/20 15:57 160 H 92 09/20/20 15:51 82 L 09/20/20 15:36 85 09/20/20 15:29 150 H 84 09/20/20 15:27 116 H 84 09/20/20 15:22 85 09/20/20 15:17 32 L 91 09/20/20 15:16 43 L 86 09/20/20 15:11 43 L 91 09/20/20 15:08 42 L 91 09/20/20 15:06 54 L 94 09/20/20 15:01 46 L 90 09/20/20 15:00 52 L 91 09/20/20 14:56 67 85 09/20/20 14:53 85 09/20/20 14:50 58 L 87 09/20/20 14:48 62 86 09/20/20 14:45 89 100 09/20/20 14:40 89 100 09/20/20 14:35 89 100 09/20/20 14:30 89 99 09/20/20 14:25 87 100 09/20/20 14:20 91 H 100 09/20/20 14:15 90 100 09/20/20 14:10 97 H 100 09/20/20 14:05 93 H 100 09/20/20 14:00 89 100 09/20/20 13:57 90 180/101 09/20/20 13:27 94 H 194/113 09/20/20 12:58 87 207/114 09/20/20 12:49 85 197/104 09/20/20 12:45 86 197/104 Intake and Output 09/20/20 09/21/20 09/21/20 22:59 06:59 14:59 Intake Total 86.433 1000 Output Total 400 2535 437 Balance -313.567 -1535 -437 Intake: IV 86.433 1000 Lactated Ringers 1,000 ml 1000 @ 125 mls/hr IV DIRECT HARITHA Rx#:[id number] PITOCin/NS 30 UNIT/500ML 76.433 30 units In 500 ml @ 2 mls/hr IV TITR HARITHA Rx#: [id number] Right Upper arm 10 Output: Urine 400 2535 437 Indwelling Catheter 400 2535 437 Other: Total, Output Amount 400 437 437 Estimated Blood Loss 300 - Exam Breasts: Present: deferred Cardiovascular: Present: Regular rate, Normal S1, Normal S2 Lungs: Present: Clear to auscultation, Normal air movement Abdomen: Present: normal appearance, soft, normal bowel sounds Uterus: Present: normal, firm Extremities: Present: normal - Labs Labs: Abnormal lab results 09/21/20 09/21/20 Range/Units 06:23 11:23 Magnesium 3.70 H 4.00 H (1.7-2.3) mg/dL
[2020-09-21] MEDS ORDERED: LACTATED RINGERS 1,000 ML IV SCH (15:00)
[2020-09-21] MEDS ORDERED: LACTATED RINGERS 1,000 ML ONE (15:09)
--- NOTE | 2020-09-21 15:25 | Post Anesthesia Evaluation ---
- Post Anesthesia Evaluation Patient Participated: Yes Airway Patent: Yes Stable Respiratory Function: Yes Nausea/Vomiting: No Temp > 96.8F: Yes Pain Manageable: Yes Adequeate Hydration: Yes Anesthesia Complications: No Block Receding Appropriately: Yes
[2020-09-22] MEDS: IBUPROFEN 600 MG TAB PO SCH ×2 (05:24→09:00)
[2020-09-22] MEDS: DOCUSATE SODIUM 100 MG CAP PO SCH (10:18)
[2020-09-22] MEDS: SENNOSIDES/DOCUSATE SODIUM 8.6/50 MG TAB PO SCH (10:18)
[2020-09-22] MEDS: PRENATAL VIT27-FE FUMARATE-FOLIC ACID VIT TAB PO SCH (10:18)
--- NOTE | 2020-09-22 12:20 | Progress Note ---
Assessment and Plan PPD 2 s/p with morbid obesity and chronic hypertension. Subjective - Subjective Date of service: 09/22/20 Interval history: Pt downstairs in NICU with baby. Not in room : in NICU Objective - Vital Signs Latest vital signs: Vital Signs Temp Pulse Resp BP BP Pulse Ox 09/22/20 08:10 98.0 F 82 18 145/92 98 09/22/20 04:12 98.2 F 91 H 18 151/96 99 09/21/20 23:40 98.1 F 95 H 18 130/81 100 09/21/20 23:00 98.2 F 09/21/20 22:14 16 09/21/20 21:54 108 H 135/84 09/21/20 21:52 96 H 135/84 09/21/20 21:49 100 H 100 09/21/20 21:44 110 H 100 09/21/20 21:39 101 H 100 09/21/20 21:34 99 H 98 09/21/20 21:29 114 H 96 09/21/20 21:28 96 H 173/100 09/21/20 21:24 99 H 97 09/21/20 21:19 101 H 98 09/21/20 21:15 98.1 F 16 09/21/20 21:14 95 H 99 09/21/20 21:09 105 H 98 09/21/20 21:04 107 H 98 09/21/20 20:59 101 H 98 09/21/20 20:54 107 H 99 09/21/20 20:49 96 H 98 09/21/20 20:44 99 H 98 09/21/20 20:39 99 H 98 09/21/20 20:34 100 H 98 09/21/20 20:29 100 H 98 09/21/20 20:28 99 H 135/83 09/21/20 20:24 111 H 99 09/21/20 20:19 63 83 L 09/21/20 20:15 87 09/21/20 20:12 106 H 82 L 09/21/20 20:10 79 L 09/21/20 20:05 76 78 L 09/21/20 20:00 73 L 09/21/20 19:54 122 H 81 L 09/21/20 19:49 97 H 98 09/21/20 19:44 98 H 100 09/21/20 19:39 114 H 100 09/21/20 19:34 113 H 98 09/21/20 19:29 103 H 98 09/21/20 19:28 105 H 138/83 09/21/20 19:24 107 H 98 09/21/20 19:19 112 H 99 09/21/20 19:14 104 H 99 09/21/20 19:09 100 H 97 09/21/20 19:04 112 H 98 09/21/20 19:00 98.4 F 18 09/21/20 18:59 103 H 96 09/21/20 18:54 104 H 97 09/21/20 18:49 103 H 97 09/21/20 18:44 103 H 98 09/21/20 18:39 104 H 97 09/21/20 18:34 107 H 97 09/21/20 18:29 105 H 98 09/21/20 18:28 100 H 145/86 09/21/20 18:24 102 H 99 09/21/20 18:19 101 H 99 09/21/20 18:14 101 H 98 09/21/20 18:09 99 H 99 09/21/20 18:04 97 H 99 09/21/20 17:59 99 H 99 09/21/20 17:55 98.1 F 18 09/21/20 17:54 96 H 99 09/21/20 17:49 98 H 99 09/21/20 17:44 97 H 99 09/21/20 17:39 95 H 100 09/21/20 17:34 105 H 99 09/21/20 17:29 115 H 100 09/21/20 17:28 110 H 131/81 09/21/20 17:24 107 H 99 09/21/20 17:19 101 H 97 09/21/20 17:17 119 H 0 L 09/21/20 17:14 94 H 69 L 09/21/20 17:09 71 0 L 09/21/20 17:06 6 L 09/21/20 17:01 93 09/21/20 16:59 61 95 09/21/20 16:55 132 H 90 09/21/20 16:54 75 96 09/21/20 16:44 70 81 L 09/21/20 16:39 68 90 09/21/20 16:38 73 82 L 09/21/20 16:33 63 87 09/21/20 16:28 105 H 121/72 81 L 09/21/20 16:23 194 H 81 L 09/21/20 16:22 83 L 09/21/20 16:17 103 H 99 09/21/20 16:12 103 H 100 09/21/20 16:07 105 H 100 09/21/20 16:02 99 H 100 09/21/20 15:57 96 H 100 09/21/20 15:52 103 H 100 09/21/20 15:47 99 H 100 09/21/20 15:42 104 H 100 09/21/20 15:37 104 H 99 09/21/20 15:32 99 H 100 09/21/20 15:29 114 H 129/78 09/21/20 15:27 106 H 100 09/21/20 15:22 95 H 99 09/21/20 15:17 96 H 99 09/21/20 15:12 101 H 99 09/21/20 15:07 100 H 99 09/21/20 15:02 94 H 99 09/21/20 14:57 93 H 97 09/21/20 14:52 95 H 98 09/21/20 14:47 96 H 97 09/21/20 14:42 96 H 98 09/21/20 14:37 96 H 97 09/21/20 14:32 95 H 98 09/21/20 14:28 91 H 140/85 09/21/20 14:27 94 H 97 09/21/20 14:22 97 H 97 09/21/20 14:17 94 H 97 09/21/20 14:12 92 H 99 09/21/20 14:07 97 H 97 09/21/20 14:02 95 H 97 09/21/20 13:57 100 H 96 09/21/20 13:52 98 H 97 09/21/20 13:47 99 H 98 09/21/20 13:42 99 H 97 09/21/20 13:37 101 H 98 09/21/20 13:32 100 H 97 09/21/20 13:28 100 H 136/82 09/21/20 13:27 100 H 97 09/21/20 13:22 97 H 97 09/21/20 13:17 103 H 99 09/21/20 13:12 101 H 98 09/21/20 13:07 99 H 98 09/21/20 13:02 95 H 98 09/21/20 12:57 93 H 99 09/21/20 12:52 100 H 100 09/21/20 12:47 102 H 100 09/21/20 12:42 99 H 100 09/21/20 12:37 100 H 99 09/21/20 12:32 105 H 99 09/21/20 12:28 94 H 145/93 09/21/20 12:27 99 H 99 09/21/20 12:22 107 H 98 Intake and Output 09/21/20 09/22/20 09/22/20 22:59 06:59 14:59 Intake Total 2980 300 Output Total 900 900 1 Balance 2080 -600 -1 Intake: Oral 2980 200 Intake, Free Water 100 Output: Urine 900 900 Indwelling Catheter 900 Void 900 Stool 1 Other: Total, Intake Amount 480 200 Total, Output Amount 250 400 1 # Voids Void 1 - Labs Labs: Abnormal lab results 09/21/20 Range/Units 17:56 Magnesium 4.00 H (1.7-2.3) mg/dL
--- NOTE | 2020-09-22 12:22 | Discharge Summary ---
Providers - Providers Date of Admission: 09/18/20 20:51 Date of discharge: 09/22/20 Attending physician: ARMANI WEBER MD Primary care physician: ARMANI WEBER MD Hospitalization Reason for admission: induction of labor Delivery: Episiotomy: none Laceration: 2nd degree Other procedures: none complications: none Discharge diagnosis: IUP at term delivered baby: male Condition at discharge: Stable Disposition: DC-01 TO HOME OR SELFCARE Plan - Discharge Medications Prescriptions: labetaloL [Labetalol 100mg TAB] 100 mg PO BID #60 tablet Ibuprofen [Motrin 600 MG tab] 600 mg PO Q6H #30 tablet - Provider Discharge Summary Activity: routine, no sex for 6 weeks, no heavy lifting 4 weeks, no strenuous exercise Diet: routine Instructions: routine Additional instructions: [] Smoking cessation referral if applicable(refer to patient education folder for contact #) [] Refer to [facility] Book[facility] Call your doctor immediately for: * Fever > 100.5 * Heavy vaginal bleeding ( >1 pad per hour) * Severe persistent headache * Shortness of breath * Reddened, hot, painful area to leg or breast * Drainage or odor from incision. * Keep incision clean and dry at all times and follow doctor's instructions regarding bathing/showering - Follow up plan Follow up: ARMANI WEBER MD [Primary Care Provider] - 10 Days
[2020-09-22] MEDS: HYDROcodone/ACETAMINOPHEN 5-325 MG TAB PO PRN (14:24)
[2020-09-23] MEDS: IBUPROFEN 600 MG TAB PO SCH (01:16)
[2020-09-23] MEDS: DOCUSATE SODIUM 100 MG CAP PO SCH ×2 (01:17→12:36)
[2020-09-23] MEDS ORDERED: IBUPROFEN 600 MG TAB PO SCH (07:53)
--- NOTE | 2020-09-23 07:55 | Event Note ---
Date: 09/23/20 Pt feeling well this morning. Her son is still in the NICU due to jaundice. Her blood pressures are borderline, but she is only on 100 mg of labetalol BID. Plan to increase labetalol to 200 mg BID and RTC for BP check within one week. Proceed with discharge.
[2020-09-23] MEDS ORDERED: IBUPROFEN 800 MG TAB PO SCH (09:00)
[2020-09-23] MEDS: PRENATAL VIT27-FE FUMARATE-FOLIC ACID VIT TAB PO SCH (12:37)
[2020-09-23 16:10] VITALS: BP 143/87
== END 2020-09-23 16:30 | disposition home or self-care (01) | DRG 807 ==
LOC: LD 20:51 → OB 09-21 23:59
PROVIDERS: ADMIT Obstetrics & Gynecology; ATTEND Obstetrics & Gynecology
PROC: 3E0R3BZ Introduction of Anesthetic Agent into Spinal Canal, Percutaneous Approach (ICD-10-PCS; principal; 2020-09-20)
PROC: 10E0XZZ Delivery of Products of Conception, External Approach (ICD-10-PCS; 2020-09-20)
PROC: 0KQM0ZZ Repair Perineum Muscle, Open Approach (ICD-10-PCS; 2020-09-20)
PROC: 00HU33Z Insertion of Infusion Device into Spinal Canal, Percutaneous Approach (ICD-10-PCS; 2020-09-20)
PROC: 10907ZC Drainage of Amniotic Fluid, Therapeutic from Products of Conception, Via Natural or Artificial Opening (ICD-10-PCS; 2020-09-20)
DX: O99.214 Obesity complicating childbirth (principal); Z37.0 Single live birth; O13.4 Gestational [pregnancy-induced] hypertension without significant proteinuria, complicating childbirth; O99.824 Streptococcus B carrier state complicating childbirth; Z3A.37 37 weeks gestation of pregnancy; Z20.822 Contact with and (suspected) exposure to COVID-19; E66.01 Morbid (severe) obesity due to excess calories; O70.1 Second degree perineal laceration during delivery
CPT/HCPCS: 36415; 59200; 83735; 85014; 85018; 85027; 86850; 86900; 86901; G0378; J0290; J0360; J0595; J2590; J3010; J3475; J7120; U0003

== ENCOUNTER 2020-09-27 10:18 | Observation (INO) | payer OTHER, MEDICAID ==
--- NOTE | 2020-09-27 10:35 | Event Note ---
ED Screening Note ED Screening Note: Patient had a vaginal delivery a week ago She was diagnosed with preeclampsia She states that she stayed in the hospital and was given magnesium She states 5 days ago that her legs began to swell sHe states yesterday she began having shortness of breath and chest tightness She states that she was still having issues with hypertension She states yesterday she went to her [employer] and they increased her labetalol from 200-400 She states that she took 400 mg last night and 400 mg this morning Hypotensive Rales on exam This initial assessment/diagnostic orders/clinical plan/treatment(s) is/are subject to change based on patients health status, clinical progression and re- assessment by fellow clinical providers in the ED. Further treatment and workup at subsequent clinical providers discretion. Patient/guardian urged not to elope from the ED as their condition may be serious if not clinically assessed and managed. Initial orders include: Chest x-ray labs, EKG Charge nurse Mare notified patient needs room AL
--- NOTE | 2020-09-27 10:51 | Emergency Department Report ---
ED Chest Pain HPI - General Chief Complaint: Chest Pain Stated Complaint: CHEST PAIN/LUPILLO FEET SWOLLEN Time Seen by Provider: 09/27/20 10:33 Source: patient Mode of arrival: Wheelchair Limitations: No Limitations - History of Present Illness Initial Comments: This is a 25-year-old -[place] female who presents to the emergency department with a complaint of a midsternal chest discomfort described as a pulling sensation, shortness of breath that worsens with exertion, continued if not worsening lower extremity swelling/edema, and some low blood pressure. The patient gave here at [facility] 1 week ago by vaginal delivery done by Dr. Nithya Stark. Patient follows with [facility]. Just after the patient delivered, she started to develop some hypertension. She was given a magnesium infusion and started on labetalol. The patient was discharged last Wednesday, 5 days ago. That day the patient had started to develop some lower extremity swelling and was told that she may have developed some preeclampsia. The labetalol was increased to 200 mg twice daily. Over the next few days the patient continued to have lower extremity edema. She contacted the [facility] [facility] [employer] [facility] service and the labetalol was increased to 400 mg twice daily yesterday. She took 1 dose of this last night and another this morning. This morning the patient says that she started to develop the midsternal chest "pulling" discomfort and shortness of breath. The patient came through our triage and had a blood pressure with a systolic in the 70s." Prior to this recent hypertension and preeclampsia, the patient denies any other past medical history. She denies any tobacco or illicit drug use. - Related Data Home Medications Medication Instructions Recorded Confirmed Last Taken One Daily Tablet 1 tab PO DAILY 09/18/20 09/27/20 09/17/20 09:00 labetaloL [Labetalol 200mg TAB] 400 mg PO BID 09/27/20 09/27/20 Unknown Previous Rx's Medication Instructions Recorded Last Taken Type Ibuprofen [Motrin 800 MG tab] 800 mg PO Q8HR PRN #30 tablet 09/23/20 Unknown Rx Allergies Allergy/AdvReac Type Severity Reaction Status Date / Time Latex, Natural Rubber Allergy Rash Verified 09/21/20 08:57 turkey Allergy Hives Uncoded 01/22/14 12:21 Heart Score - HEART Score History: Slightly suspicious EKG: Normal Age: < 45 Risk factors: 1-2 risk factors Troponin: < normal limit HEART Score: 1 - EKG Read Time Time EKG Completed: 10:35 EKG Read Time: 10:37 ED Review of Systems ROS: Stated complaint: CHEST PAIN/LUPILLO FEET SWOLLEN Other details as noted in HPI Comment: All other systems reviewed and negative Constitutional: denies: chills, fever Eyes: denies: eye pain, vision change ENT: denies: ear pain, throat pain Respiratory: shortness of breath, SOB with exertion, wheezing Cardiovascular: chest pain, edema Gastrointestinal: denies: abdominal pain, vomiting Genitourinary: denies: dysuria, discharge Musculoskeletal: myalgia. denies: back pain Skin: denies: rash, lesions Neurological: denies: headache, numbness, paresthesias ED Past Medical Hx - Past Medical History Previous Medical History?: Yes Hx Hypertension: Yes Hx Congestive Heart Failure: No Hx Diabetes: No Hx Deep Vein Thrombosis: No Hx Renal Disease: No Hx Sickle Cell Disease: No Hx Headaches / Migraines: Yes Hx Seizures: No Hx Asthma: No Hx COPD: No Hx HIV: No - Surgical History Past Surgical History?: No Hx Pacemaker: No Hx Internal Defibrillator: No - Social History Smoking Status: Never Smoker - Medications Home Medications: Home Medications Medication Instructions Recorded Confirmed Last Taken Type One Daily Tablet 1 tab PO DAILY 09/18/20 09/27/20 09/17/20 09:00 History Ibuprofen [Motrin 800 MG tab] 800 mg PO Q8HR PRN #30 tablet 09/23/20 09/27/20 Unknown Rx labetaloL [Labetalol 200mg TAB] 400 mg PO BID 09/27/20 09/27/20 Unknown History ED Physical Exam - General Limitations: No Limitations - Other Other exam information: GENERAL: The patient is well-developed well-nourished. HENT: Normocephalic. Atraumatic. Patient has moist mucous membranes. EYES: Extraocular motions are intact. Pupils equal reactive to light bilaterally. NECK: Supple. Trachea is midline. CHEST/LUNGS: Slightly coarse breath sounds. There is some tachypnea but no accessory muscle use. HEART/CARDIOVASCULAR: Regular. There is no tachycardia. There is no murmur. ABDOMEN: Abdomen is soft, nontender. Patient has normal bowel sounds. Morbidly obese habitus. SKIN: Moderate nonpitting swelling to the bilateral lower extremities from the knees distally. NEURO: The patient is awake, alert, and oriented. The patient is cooperative. The patient has no focal neurologic deficits. Normal speech. Cranial nerves II through XII grossly intact. No facial asymmetry. MUSCULOSKELETAL: There is no tenderness or deformity. There is no limitation range of motion. ED Course Vital Signs 09/27/20 09/27/20 09/27/20 10:22 11:14 11:15 Temperature 97.9 F Pulse Rate 75 76 79 Respiratory 20 31 H 27 H Rate Blood Pressure 197/112 Blood Pressure 84/57 [Right] O2 Sat by Pulse 98 99 100 Oximetry 09/27/20 09/27/20 09/27/20 11:30 11:46 12:00 Temperature Pulse Rate 69 Respiratory 25 H Rate Blood Pressure 178/105 182/112 197/110 Blood Pressure [Right] O2 Sat by Pulse 98 98 96 Oximetry 09/27/20 09/27/20 09/27/20 12:15 12:36 12:46 Temperature Pulse Rate Respiratory Rate Blood Pressure 168/100 168/100 170/100 Blood Pressure [Right] O2 Sat by Pulse 95 100 Oximetry 09/27/20 09/27/20 09/27/20 13:00 13:07 13:16 Temperature Pulse Rate Respiratory Rate Blood Pressure 170/100 167/93 154/97 Blood Pressure [Right] O2 Sat by Pulse 100 100 Oximetry 09/27/20 09/27/20 09/27/20 13:32 13:46 14:00 Temperature Pulse Rate Respiratory Rate Blood Pressure 168/100 168/100 Blood Pressure [Right] O2 Sat by Pulse 93 99 99 Oximetry 09/27/20 09/27/20 09/27/20 14:16 14:30 15:53 Temperature Pulse Rate Respiratory Rate Blood Pressure 179/108 154/101 177/106 Blood Pressure [Right] O2 Sat by Pulse 97 99 Oximetry 09/27/20 09/27/20 09/27/20 16:00 16:16 16:30 Temperature Pulse Rate Respiratory Rate Blood Pressure 170/108 165/93 178/97 Blood Pressure [Right] O2 Sat by Pulse 100 99 98 Oximetry 09/27/20 09/27/20 16:46 17:00 Temperature Pulse Rate Respiratory Rate Blood Pressure 169/96 171/100 Blood Pressure [Right] O2 Sat by Pulse 98 99 Oximetry ELDER score - Elder Score Age > 65: (0) No Aspirin use within the Past 7 Days: (0) No 3 or more CAD Risk Factors: (0) No 2 or more Angina events in past 24 hrs: (1) Yes Known CAD with more than 50% Stenosis: (0) No Elevated Cardiac Markers: (0) No ST Deviation Greater than 0.5mm: (0) No ELDER Score: 1 ED Medical Decision Making - Lab Data Result diagrams: 09/27/20 11:16 09/27/20 11:01 Lab Results 09/27/20 09/27/20 09/27/20 Range/Units 11:01 11:16 12:05 WBC 8.3 (4.5-11.0) K/mm3 RBC 4.88 (3.65-5.03) M/mm3 Hgb 11.3 (10.1-14.3) gm/dl Hct 35.3 (30.3-42.9) % MCV 72 L (79-97) fl MCH 23 L (28-32) pg MCHC 32 (30-34) % RDW 15.1 (13.2-15.2) % Plt Count 327 (140-440) K/mm3 Lymph % (Auto) 15.7 (13.4-35.0) % Z[place]ala % (Auto) 5.6 (0.0-7.3) % Eos % (Auto) 0.5 (0.0-4.3) % Baso % (Auto) 0.4 (0.0-1.8) % Lymph # (Auto) 1.3 (1.2-5.4) K/mm3 Zavala # (Auto) 0.5 (0.0-0.8) K/mm3 Eos # (Auto) 0.0 (0.0-0.4) K/mm3 Baso # (Auto) 0.0 (0.0-0.1) K/mm3 Seg Neutrophils % 77.8 H (40.0-70.0) % Seg Neutrophils # 6.4 (1.8-7.7) K/mm3 D-Dimer 813.90 H (0-234) ng/mlDDU Sodium 137 (137-145) mmol/L Potassium 4.0 (3.6-5.0) mmol/L Chloride 104.2 (98-107) mmol/L Carbon Dioxide 19 L (22-30) mmol/L Anion Gap 18 mmol/L BUN 9 (7-17) mg/dL Creatinine 0.7 (0.6-1.2) mg/dL Estimated GFR > 60 ml/min BUN/Creatinine Ratio 13 % Glucose 77 (65-100) mg/dL Calcium 8.7 (8.4-10.2) mg/dL Total Bilirubin 0.40 (0.1-1.2) mg/dL AST 18 (5-40) units/L ALT 31 (7-56) units/L Alkaline Phosphatase 214 H (35-129) units/L Troponin T < 0.010 (0.00-0.029) ng/mL NT-Pro-B Natriuret Pep 598.8 H (0-450) pg/mL Total Protein 7.6 (6.3-8.2) g/dL Albumin 3.8 L (3.9-5) g/dL Albumin/Globulin Ratio 1.0 % /16/ Range/Units 14:22 WBC (4.5-11.0) K/mm3 RBC (3.65-5.03) M/mm3 Hgb (10.1-14.3) gm/dl Hct (30.3-42.9) % MCV (79-97) fl MCH (28-32) pg MCHC (30-34) % RDW (13.2-15.2) % Plt Count (140-440) K/mm3 Lymph % (Auto) (13.4-35.0) % Zavala % (Auto) (0.0-7.3) % Eos % (Auto) (0.0-4.3) % Baso % (Auto) (0.0-1.8) % Lymph # (Auto) (1.2-5.4) K/mm3 Zavala # (Auto) (0.0-0.8) K/mm3 Eos # (Auto) (0.0-0.4) K/mm3 Baso # (Auto) (0.0-0.1) K/mm3 Seg Neutrophils % (40.0-70.0) % Seg Neutrophils # (1.8-7.7) K/mm3 D-Dimer (0-234) ng/mlDDU Sodium (137-145) mmol/L Potassium (3.6-5.0) mmol/L Chloride (98-107) mmol/L Carbon Dioxide (22-30) mmol/L Anion Gap mmol/L BUN (7-17) mg/dL Creatinine (0.6-1.2) mg/dL Estimated GFR ml/min BUN/Creatinine Ratio % Glucose (65-100) mg/dL Calcium (8.4-10.2) mg/dL Total Bilirubin (0.1-1.2) mg/dL AST (5-40) units/L ALT (7-56) units/L Alkaline Phosphatase (35-129) units/L Troponin T < 0.010 (0.00-0.029) ng/mL NT-Pro-B Natriuret Pep (0-450) pg/mL Total Protein (6.3-8.2) g/dL Albumin (3.9-5) g/dL Albumin/Globulin Ratio % - EKG Data -: EKG Interpreted by Me EKG shows normal: sinus rhythm, axis, intervals, QRS complexes, ST-T waves Rate: normal - EKG Data When compared to previous EKG there are: previous EKG unavailable Interpretation: normal EKG - Radiology Data Radiology results: report reviewed, image reviewed interpreted by me: Chest x-ray does not show any acute process. There are no pleural effusions, obvious pneumonia and there is no pneumothorax. No significant cardiomegaly. The CT head/brain wo con INDICATION / CLINICAL INFORMATION: 25 years Female; Headache with hypertensive urgency. TECHNIQUE: Routine CT head without contrast. All CT scans at this location are performed using CT dose reduction for ALARA by means of automated exposure control. COMPARISON: None. FINDINGS: BRAIN / INT RACRANIAL CONTENTS: The brain demonstrates appropriate attenuation. The ventricular system is within normal limits in size and configuration. There is no clear CT ends of acute intracranial hemorrhage or significant mass effect. ORBITS: No significant abnormality of visualized orbits. SINUSES / MASTOIDS: There is minimal mucosal thickening within the left maxillary sinus. CRANIOCERVICAL JUNCTION: No significant abnormality. ADDITIONAL FINDINGS: None. IMPRESSION: 1. There is no CT evidence of acute intracranial process. CTA CHEST WITH CONTRAST INDICATION : Elevated d-dimer, shortness of breath. TECHNIQUE: Axial imaging performed through the chest, with contrast bolus timing set to maximize opacification of the pulmonary arteries. Sagittal and coronal reformatted images. 3-plane MIP reformatted images were obtained. All CT scans at this location are performed using CT dose reduction for ALARA by means of automated exposure control. 100 mL of intravenous contrast administered. COMPARISON: None FINDINGS: Bolus: Contrast bolus timing is adequate. PTE: Sli ghtly limited exam secondary to patient body habitus. No pulmonary embolus is detected. Mediastinum: Heart size is borderline. No pericardial abnormality. The remaining mediastinal structures are unremarkable. No pathologic mediastinal adenopathy. Lungs: Lungs are clear. Bones: Degenerative changes in the spine with nothing acute. Upper abdomen: Limited imaging of the upper abdomen shows nothing acute. IMPRESSION: Borderline heart size. Lungs clear. No pulmonary embolus is detected. - Medical Decision Making This patient presents to the emergency department with some continued issues with blood pressure control, some midsternal chest discomfort, bilateral lower extremity swelling, and the patient complains of a frontal headache during her ED course. On examination she does not have any focal, motor or sensory deficits and her cranial nerves are intact. Heart and lung sounds are normal to auscultation. The patient does present with a blood pressure of about 200/100 despite taking 400 mg of labetalol last night and again this morning. It sounds like she has some recent history of preeclampsia just after her vaginal delivery for which she was initially started on the labetalol and given a magnesium infusion prior to discharge. The labetalol has increased from 100 to 200 mg, then to 400 mg twice daily. Chest x-ray did not show any pneumonia, pleural effusions, pneumothorax, or any other acute process. EKG did not have any morphology consistent ST elevation myocardial infarction or any dysrhythmia. The patient's labs were mostly unremarkable except for a UTI, a slightly elevated proBNP, and an elevated D-dimer. Patient had a CT scan of the head that did not show any hemorrhage, large vessel occlusion, or any other acute process. The patient was given a total of 20 mg of hydralazine. Despite the hydralazine, and the labetalol that she had taken this morning, the patient still has a blood pressure of 170/100 at the time of admission. Because of this, the lower extremity swelling, and the intermittent chest discomfort/shortness of breath, the patient appears to still have issues with eclampsia. I spoke to Dr. Coates, the [employer] [facility] on-call for [facility] [employer] [facility] [employer], who agrees that the patient will need admission. She has allowed for me to place bridging orders over to labor and delivery where the patient will most likely receive a magnesium infusion. Critical Care Time: No Critical care attestation.: If time is entered above; I have spent that time in minutes in the direct care of this critically ill patient, excluding procedure time. ED Disposition Clinical Impression: Preeclampsia in period, Hypertensive urgency, Bilateral lower extremity edema Dyspnea Qualifiers: Dyspnea type: shortness of breath Qualified Code(s): R06.02 - Shortness of breath; R06.00 - Dyspnea, unspecified; R06.01 - Orthopnea Disposition: 09 OP ADMIT IP TO THIS HOSP Is pt being admited?: Yes Condition: Serious Time of Disposition: 16:03
[2020-09-27 11:49] LABS: Bacteria,Urine 1+ /HPF (Negative); Bilirubin,Urine NEG (Negative); Blood,Urine LG (Negative); Color,Urine Yellow (Yellow); Urobilinogen,Urine < 2.0 mg/dL (<2.0)
[2020-09-27 11:52] LABS: Alanine Aminotransferase 31 units/L (7-56); Albumin 3.8 g/dL (3.9-5); Blood Urea Nitrogen 9 mg/dL (7-17); Calcium 8.7 mg/dL (8.4-10.2); Hemolysis Index 10
[2020-09-27 11:52] LABS: Basophils % (Auto) 0.4 % (0.0-1.8); Eosinophils % (Auto) 0.5 % (0.0-4.3); Hematocrit 35.3 % (30.3-42.9); Hemoglobin 11.3 gm/dl (10.1-14.3); Lymphocytes # (Auto) 1.3 K/mm3 (1.2-5.4); Lymphocytes % (Auto) 15.7 % (13.4-35.0); Mean Corpuscular HGB Conc 32 % (30-34); Mean Corpuscular Volume 72 fl (79-97); Monocytes # (Auto) 0.5 K/mm3 (0.0-0.8); Monocytes % (Auto) 5.6 % (0.0-7.3); Platelet Count 327 K/mm3 (140-440); Red Blood Count 4.88 M/mm3 (3.65-5.03); Red Cell Distribution Width 15.1 % (13.2-15.2)
--- NOTE | 2020-09-27 11:53 | XRay Report ---
CHEST 1 VIEW 09/27/2020 11:16 AM INDICATION / CLINICAL INFORMATION: Chest pain. COMPARISON: None available. FINDINGS: SUPPORT DEVICES: None. HEART / MEDIASTINUM: No significant abnormality. LUNGS / PLEURA: No significant pulmonary or pleural abnormality. No pneumothorax. ADDITIONAL FINDINGS: No significant additional findings. IMPRESSION: 1. No acute findings. Signer Name: Shoaib Baugh MD Signed: 09/27/2020 11:49 AM Workstation Name: [id number]
[2020-09-27 11:55] LABS: BUN/Creatinine Ratio 13
[2020-09-27] MEDS ORDERED: hydrALAZINE 20 MG/1 ML INJ IV ONE ×2 (11:59→13:01)
[2020-09-27] MEDS ORDERED: MORPHINE 4 MG/1 ML INJ IV ONE (12:02)
[2020-09-27] MEDS ORDERED: IPRATROPIUM/ALBUTEROL SULFATE 3 ML AMPUL.NEB IH ONE (12:02)
[2020-09-27] MEDS ORDERED: KETOROLAC 30 MG/1 ML INJ IV ONE (12:21)
[2020-09-27] MEDS ORDERED: NITROFURANTOIN MONOHYD/M-CRYST 100 MG CAP PO ONE (13:01)
--- NOTE | 2020-09-27 15:30 | Cat Scan Report ---
The CT head/brain wo con INDICATION / CLINICAL INFORMATION: 25 years Female; Headache with hypertensive urgency. TECHNIQUE: Routine CT head without contrast. All CT scans at this location are performed using CT dos e reduction for ALARA by means of automated exposure control. COMPARISON: None. FINDINGS: BRAIN / INTRACRANIAL CONTENTS: The brain demonstrates appropriate attenuation. The ventricular system is within normal limits in size and configuration. There is no clear CT ends of acute intracranial h emorrhage or significant mass effect. ORBITS: No significant abnormality of visualized orbits. SINUSES / MASTOIDS: There is minimal mucosal thickening within the left maxillary sinus. CRANIOCERVICAL JUNCTION: No significant abnormality. ADDITIONAL FINDINGS: None. IMPRESSION: 1. There is no CT evidence of acute intracranial process. Signer Name: Néstor Malave MD Signed: 09/27/2020 3:26 PM Workstation Name: [id number]
--- NOTE | 2020-09-27 15:38 | Cat Scan Report ---
. CTA CHEST WITH CONTRAST INDICATION : Elevated d-dimer, shortness of breath. TECHNIQUE: Axial imaging performed through the chest, with contrast bolus timing set to maximize opa cification of the pulmonary arteries. Sagittal and coronal reformatted images. 3-plane MIP reformatte d images were obtained. All CT scans at this location are performed using CT dose reduction for ALAR A by means of automated exposure control. 100 mL of intravenous contrast administered. COMPARISON: None FINDINGS: Bolus: Contrast bolus timing is adequate. PTE: Slightly limited exam secondary to patient body habitus. No pulmonary embolus is detected. Mediastinum: Heart size is borderline. No pericardial abnormality. The remaining mediastinal structu res are unremarkable. No pathologic mediastinal adenopathy. Lungs: Lungs are clear. Bones: Degenerative changes in the spine with nothing acute. Upper abdomen: Limited imaging of the upper abdomen shows nothing acute. IMPRESSION: Borderline heart size. Lungs clear. No pulmonary embolus is detected. Signer Name: Jaylon Cota Jr, MD Signed: 09/27/2020 3:34 PM Workstation Name: [id number]
[2020-09-27] MEDS ORDERED: ACETAMINOPHEN 325 MG TAB PO ONE (16:44)
[2020-09-27] MEDS ORDERED: diphenhydrAMINE 25 MG CAP PO PRN (17:01)
[2020-09-27] MEDS ORDERED: MAGNESIUM SULFATE 40GM/1000ML 40 GM/1,000 ML BAG IV ONE (17:01)
[2020-09-27] MEDS ORDERED: PROMETHAZINE 25 MG RECT SUPP PR PRN (17:01)
[2020-09-27] MEDS ORDERED: MAGNESIUM SULFATE 4 GM/100 ML BAG IV ONE (17:01)
[2020-09-27] MEDS ORDERED: LANOLIN/ZINC/DIMETHICONE (LANSINOH) 7 GM TP PRN (17:01)
[2020-09-27] MEDS ORDERED: ONDANSETRON 4 MG/2 ML INJ IV PRN (17:01)
[2020-09-27] MEDS ORDERED: HYDROcodone/ACETAMINOPHEN 5-325 MG TAB PO PRN (17:01)
[2020-09-27] MEDS ORDERED: PROMETHAZINE 25 MG TAB PO PRN (17:01)
[2020-09-27] MEDS ORDERED: MAGNESIUM HYDROXIDE (MOM) ORAL LIQD UDC PO PRN (17:01)
[2020-09-27] MEDS ORDERED: WITCH HAZEL/ GLYCERIN PAD TP PRN (17:01)
[2020-09-27] MEDS ORDERED: hydrALAZINE 20 MG/1 ML INJ IV PRN (17:04)
--- NOTE | 2020-09-27 17:21 | Electrocardiograph Report ---
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
[2020-09-27] MEDS: IBUPROFEN 600 MG TAB PO SCH (18:41)
[2020-09-27] MEDS ORDERED: LACTATED RINGERS 1,000 ML ONE (20:16)
[2020-09-27] MEDS ORDERED: LACTATED RINGERS 1,000 ML IV SCH (20:45)
[2020-09-27] MEDS ORDERED: ACETAMINOPHEN 325 MG TAB PO PRN (20:53)
[2020-09-28] MEDS: IBUPROFEN 600 MG TAB PO SCH ×2 (01:15→18:49)
--- NOTE | 2020-09-28 09:23 | History and Physical Report ---
History of Present Illness Date of examination: 09/28/20 Date of admission: 09/27/20 16:03 Chief complaint: Chest pain and edema History of present illness: 25-year-old -0-0-2 status post a spontaneous vaginal delivery September 20. course was complicated by elevated blood pressures for which the patient had to undergo magnesium sulfate therapy. The patient was discharged home with labetalol by mouth. She represented to the emergency department with lower extremity edema and chest pain. The patient's blood pressures were noted to be significantly elevated despite antihypertensive therapy. Imaging was performed that ruled out evidence of a pulmonary embolism. Past History Past Medical History: other (Morbid obesity) Past Surgical History: no surgical history Social history: - Obstetrical History : 2 Para: 2 Hx # Term Pregnancies: 2 Number of Pregnancies: 0 Spontaneous Abortions: 0 Induced : 0 Number of Living Children: 2 Medications and Allergies Allergies Allergy/AdvReac Type Severity Reaction Status Date / Time Latex, Natural Rubber Allergy Rash Verified 09/21/20 08:57 turkey Allergy Hives Uncoded 01/22/14 12:21 Home Medications Medication Instructions Recorded Confirmed Last Taken Type One Daily Tablet 1 tab PO DAILY 09/18/20 09/27/20 09/17/20 09:00 History Ibuprofen [Motrin 800 MG tab] 800 mg PO Q8HR PRN #30 tablet 09/23/20 09/27/20 Unknown Rx labetaloL [Labetalol 200mg TAB] 400 mg PO BID 09/27/20 09/27/20 Unknown History Active Meds: Active Medications Acetaminophen (Acetaminophen 325 Mg Tab) 650 mg PO Q6H PRN PRN Reason: Headache Hydrocodone Bitart/Acetaminophen (Hydrocodone/Acetaminophen 5-325 Mg Tab) 2 each PO Q6H PRN PRN Reason: Pain, Moderate (4-6) Bisacodyl (Bisacodyl 10 Mg Rect Supp) 10 mg MS BID PRN PRN Reason: Constipation Diphenhydramine HCl (Diphenhydramine 25 Mg Cap) 25 mg PO Q6H PRN PRN Reason: Itching Hydralazine HCl (Hydralazine 20 Mg/1 Ml Inj) 20 mg IV Q4H PRN PRN Reason: Hypertension Last Admin: 09/27/20 18:44 Dose: 20 mg Documented by: Magnesium Sulfate (Magnesium Sulfate 40gm/1000ml) 40 gm in 1,000 mls @ 50 mls/hr IV ONCE ONE Stop: 09/28/20 13:00 Last Admin: 09/27/20 20:40 Dose: 2 gm/hr, 50 mls/hr Documented by: Lactated Ringer's (Lactated Ringers) 1,000 mls @ 75 mls/hr IV DIRECT HARITHA Ibuprofen (Ibuprofen 600 Mg Tab) 600 mg PO Q6H HARITHA Last Admin: 09/28/20 01:15 Dose: 600 mg Documented by: Labetalol HCl (Labetalol 200 Mg Tab) 400 mg PO BID HARITHA Last Admin: 09/27/20 21:59 Dose: 400 mg Documented by: Magnesium Hydroxide (Magnesium Hydroxide (Mom) Oral Liqd Udc) 30 ml PO HS PRN PRN Reason: Constipation Multi-Ingredient Ointment (Lanolin/Zinc/Dimethicone (Lansinoh) 7 Gm) 1 applic TP PRN PRN PRN Reason: Sore Nipples Ondansetron HCl (Ondansetron 4 Mg/2 Ml Inj) 4 mg IV Q8H PRN PRN Reason: Nausea And Vomiting Promethazine HCl (Promethazine 25 Mg Rect Supp) 25 mg MS Q6H PRN PRN Reason: Nausea And Vomiting Promethazine HCl (Promethazine 25 Mg Tab) 25 mg PO Q6H PRN PRN Reason: Nausea And Vomiting Sodium Chloride (Sodium Chloride 0.9% 10 Ml Flush Syringe) 10 ml IV PRN NR Stop: 10/02/20 17:59 Witch Yu/Glycerin (Witch Yu/ Glycerin Pad) 1 each TP PRN PRN PRN Reason: Hemorrhoid/cleansing/soothing Review of Systems Musculoskeletal: other (Edema) - Vital Signs Vital signs: Vital Signs Temp Pulse Resp BP Pulse Ox 97.9 F 75 20 84/57 98 09/27/20 10:22 09/27/20 10:22 09/27/20 10:22 09/27/20 10:22 09/27/20 10:22 Temp Pulse Resp BP Pulse Ox 97.8 F 97 H 18 159/90 98 09/28/20 08:37 09/28/20 09:18 09/28/20 08:37 09/28/20 08:37 04/17/21 09:18 - Physical Exam Breasts: Positive: deferred Cardiovascular: Regular rate Lungs: Positive: Clear to auscultation Results Result Diagrams: 09/27/20 11:16 09/27/20 11:01 Abnormal lab results 09/27/20 09/27/20 09/27/20 Range/Units 11:01 11:16 12:05 MCV 72 L (79-97) fl MCH 23 L (28-32) pg Seg Neutrophils % 77.8 H (40.0-70.0) % D-Dimer 813.90 H (0-234) ng/mlDDU Carbon Dioxide 19 L (22-30) mmol/L Magnesium (1.7-2.3) mg/dL Alkaline Phosphatase 214 H (35-129) units/L NT-Pro-B Natriuret Pep 598.8 H (0-450) pg/mL Albumin 3.8 L (3.9-5) g/dL Urine WBC (Auto) (0.0-6.0) /HPF 09/27/20 09/28/20 09/28/20 Range/Units Unknown 00:50 06:11 MCV (79-97) fl MCH (28-32) pg Seg Neutrophils % (40.0-70.0) % D-Dimer (0-234) ng/mlDDU Carbon Dioxide (22-30) mmol/L Magnesium 4.20 H 4.70 H (1.7-2.3) mg/dL Alkaline Phosphatase (35-129) units/L NT-Pro-B Natriuret Pep (0-450) pg/mL Albumin (3.9-5) g/dL Urine WBC (Auto) 80.0 H (0.0-6.0) /HPF All other labs normal. Assessment and Plan - Patient Problems (1) Morbid obesity with BMI of 60.0-69.9, adult Current Visit: Yes Status: Acute Plan to address problem: Patient was readmitted for magnesium therapy and antihypertensive management (2) Preeclampsia in period Current Visit: Yes Status: Acute
[2020-09-28] MEDS ORDERED: NIFEdipine XL 60 MG TAB PO SCH (10:00)
[2020-09-28 20:39] VITALS: BP 145/84
== END 2020-09-28 20:55 | disposition home or self-care (01) ==
LOC: ED 10:18 → LD 16:03
PROVIDERS: ADMIT Obstetrics & Gynecology; ATTEND Obstetrics & Gynecology
DX: O11.5 Pre-existing hypertension with pre-eclampsia, complicating the puerperium (principal); Z20.822 Contact with and (suspected) exposure to COVID-19; I16.0 Hypertensive urgency; R60.0 Localized edema; R06.00 Dyspnea, unspecified; E66.01 Morbid (severe) obesity due to excess calories; G43.909 Migraine, unspecified, not intractable, without status migrainosus
CPT/HCPCS: 36415; 70450; 71045; 71275; 80053; 81001; 83735; 83880; 84484; 85025; 85379; 87086; 93005; 96365; 96366; 96375; 96376; 99285; G0378; J0360; J1885; J2270; J3475; J7120; Q9967; U0003